=== PATIENT | male | born 1995 | race Caucasian/White ===

== ENCOUNTER 2019-10-25 18:28 | Emergency (ER) | payer OTHER ==
[~2019-10-25] VITALS: Ht 175.3 cm; Wt 83.5 kg
[2019-10-25 18:56] VITALS: Ht 175.3 cm; Wt 83.5 kg
[2019-10-25 20:22] LABS: BASOPHIL % 0.6 % (0-2); PLATELET COUNT 184 x10^3mcL (130-400); RED CELL DISTRIBUTION WIDTH 14.1 % (11.5-14.5)
[2019-10-25 21:48] LABS: CARBON DIOXIDE 28.3 mmol/L (21-32); CHLORIDE SERUM 101 mmol/L (98-107); GFR1 > 60 mL/min; GLUCOSE SERUM 82 mg/dL (74-106); POTASSIUM SERUM 4.2 mmol/L (3.5-5.1); SODIUM SERUM 138 mmol/L (136-145)
[2019-10-25 21:51] LABS: ALBUMIN 3.8 g/dL (3.4-5.0); ALKALINE PHOSPHATASE 71 U/L (46-116); ALT/SGPT 61 U/L (16-63); AMYLASE 80 U/L (25-115); AST/SGOT 39 U/L (15-37); LIPASE 105 IU/L (73-393); TOTAL PROTEIN, SERUM 7.3 g/dL (6.4-8.2)
[2019-10-25 23:30] VITALS: BP 110/69
== END 2019-10-25 23:30 | disposition home or self-care (01) ==
LOC: ED 18:28
PROVIDERS: Specialist
DX: R07.89 Other chest pain (principal)
CPT/HCPCS: 99406; J1885; Q0092